=== PATIENT | female | born 1955 | race Two or more races ===

== ENCOUNTER 2019-09-14 18:53 | Emergency (ER) | payer OTHER, SELFPAY ==
[2019-09-14 19:16] VITALS: BP 137/80; PULSE 88; RESP 16; TEMP 36.9; O2SAT 100
--- NOTE | 2019-09-14 19:32 | ED.GENADULT ---
HPI - General Adult General Chief complaint: Extremity Injury, Upper Stated complaint: right hand pain Time Seen by Provider: 09/14/19 19:33 Source: patient Mode of arrival: ambulatory Limitations: no limitations History of Present Illness HPI narrative: 64-year-old female patient presents to the [facility] with complaints of right hand pain. 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 Patient states she started having right hand pain yesterday but denies any specific injury to the hand that she is aware of. Patient states that she did take ibuprofen 1 time yesterday denies taking anything today. Patient denies any numbness or tingling. 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 Related Data Home Medications Medication Instructions Recorded Confirmed No Home Medications 09/14/19 09/14/19 Allergies Allergy/AdvReac Type Severity Reaction Status Date / Time azithromycin Allergy Intermediate rash Verified 09/14/19 19:23 acetaminophen AdvReac Intermediate sick to Verified 09/14/19 19:23 stomach and hallucinate ibuprofen AdvReac Intermediate sick to Verified 09/14/19 19:23 stomach and hallucinate prednisone AdvReac Intermediate NAUSEA/VOMI Verified 09/14/19 19:23 TING Review of Systems Review of Systems: Narrative: CONSTITUTIONAL: Denies fever, chills, or sweats. EYES: Denies visual changes, redness, or discharge. ENT: Denies rhinorrhea, congestion, sore throat, or otalgia. CARDIOVASCULAR: Denies chest pain, palpitations, or edema. RESPIRATORY: Denies cough or dyspnea. GASTROINTESTINAL: Denies abdominal pain, nausea, vomiting, or diarrhea. GENITOURINARY: Denies dysuria or hematuria. SKIN: Denies rash or itching. MUSCULOSKELETAL: Denies back pain, joint pain, or myalgia. Positive right hand pain NEUROLOGIC: Denies headache, numbness, or weakness. PSYCHIATRIC: Denies anxiety or depression. PMFSH Comments At the time of my signature I agree with nursing past medical history, surgical, social, and family history. There is no relevant family history pertinent to the presenting complaint. Exam Narrative: Exam Narrative: GENERAL: Well-appearing, well-nourished, and in no acute distress. HEAD: Normocephalic, atraumatic. EYES: PERRLA and EOMI. ENT: Nares clear, no rhinorrhea or epistaxis. Mucous membranes moist. NECK: Supple. No lymphadenopathy CHEST: Clear to auscultation. No respiratory distress. HEART: Regular rate and rhythm. No murmur heard. Normal peripheral pulses. ABDOMEN: Soft, nontender, nondistended, normal active bowel sounds. EXTREMITIES: The R hand is without obvious asymmetry or deformity when compared to the L hand. No swelling, erythema, atrophy, or obvious deformity. No surface trauma, open wounds, nail avulsion, tissue avulsion, partial or complete amputation, subungual hematoma, bony deformity. Normal cascade of fingers. Normal flexion and extension of fingers. FDS and FDP intact aganist restistance. No focal fullness, thobbing pain, swelling of fingertip. tenderness to palpation to the palm side as well as tenderness to palpation on the dorsal side of the middle hand. Patient describes this as a pulling feeling. Pulses and cap refill. SKIN: Warm, dry, no rash. NEURO: No focal deficits. Alert and oriented x3. Course Vital Signs Vital signs: Vital Signs Temperature 36.9 C 09/14/19 19:16 Pulse Rate 88 09/14/19 19:16 Respiratory Rate 16 09/14/19 19:16 Blood Pressure 137/80 09/14/19 19:16 Pulse Oximetry 100 09/14/19 19:16 Temperature 36.9 C 09/14/19 19:16 Pulse Rate 88 09/14/19 19:16 Respiratory Rate 16 09/14/19 19:16 Blood Pressure 137/80 09/14/19 19:16 Pulse Oximetry 100 09/14/19 19:16 Vital signs reviewed. The patient has been informed that they may have pre-hypertension or Hypertension based on a BP reading in the department. I recommend that the patient call the primary care provider
== END 2019-09-14 19:47 | disposition home or self-care (01) ==
PROVIDERS: Emergency Provider Nurse Practitioner Family
DX: S63.91XA Sprain of unspecified part of right wrist and hand, initial encounter (principal); S66.911A Strain of unspecified muscle, fascia and tendon at wrist and hand level, right hand, initial encounter; X58.XXXA Exposure to other specified factors, initial encounter
CPT/HCPCS: 99212; G0463

== ENCOUNTER 2020-04-01 08:32 | Emergency (ER) | payer OTHER, SELFPAY ==
[2020-04-01 08:39] VITALS: BP 132/70; PULSE 113; RESP 16; TEMP 36.9; O2SAT 100
--- NOTE | 2020-04-01 08:43 | ED.URI ---
HPI - URI/Sore Throat General Chief Complaint: Upper Respiratory Infection Stated Complaint: sore throat Time Seen by Provider: 04/01/20 08:43 Source: patient Mode of arrival: ambulatory Limitations: no limitations History of Present Illness HPI Narrative: Patient presents with a sore throat. States she woke up this am with a sore throat. no trouble swallowing, no drooling. no cough no covid 19 symptoms no exposure to covid 19. Normally healthy individual MD elicited complaint: sore throat Relieving factors: NSAID Associated symptoms: denies other symptoms Related Data Allergies Allergy/AdvReac Type Severity Reaction Status Date / Time azithromycin Allergy Intermediate rash Verified 04/01/20 08:35 acetaminophen AdvReac Intermediate sick to Verified 04/01/20 08:35 stomach and hallucinate ibuprofen AdvReac Intermediate sick to Verified 04/01/20 08:35 stomach and hallucinate prednisone AdvReac Intermediate NAUSEA/VOMI Verified 04/01/20 08:35 TING Review of Systems Review of Systems: Narrative: CONSTITUTIONAL: Denies fever, chills, or sweats. EYES: Denies visual changes, redness, or discharge. ENT: Denies rhinorrhea, congestion, or otalgia. reports sore throat CARDIOVASCULAR: Denies chest pain, palpitations, or edema. RESPIRATORY: Denies cough or dyspnea. GASTROINTESTINAL: Denies abdominal pain, nausea, vomiting, or diarrhea. GENITOURINARY: Denies dysuria or hematuria. SKIN: Denies rash or itching. MUSCULOSKELETAL: Denies back pain, joint pain, or myalgia. NEUROLOGIC: Denies headache, numbness, or weakness. PSYCHIATRIC: Denies anxiety or depression. All systems reviewed & are unremarkable except as noted in HPI and below Constitutional: Constitutional: Reports as per HPI PMFSH Comments At time of signature, agree with nursing past medical, surgical, social and family history. There is no relevant family history pertinent to the presenting complaint Exam Narrative: Exam Narrative: GENERAL: Well-appearing, well-nourished, and in no acute distress. HEAD: Normocephalic, atraumatic. EYES: PERRLA and EOMI. ENT: Nares clear, no rhinorrhea or epistaxis. Mucous membranes moist.mild pharyngeal erythema, no trismus, no drooling, can open mouth fully, no exudate. NECK: Supple. CHEST: Clear to auscultation. No respiratory distress. HEART: Regular rate and rhythm. No murmur heard. Normal peripheral pulses. ABDOMEN: Soft, nontender, nondistended, normal active bowel sounds. EXTREMITIES: Normal range of motion. No edema. SKIN: Warm, dry, no rash. NEURO: No focal deficits. Alert and oriented x3. [place] Coma Scale Eye Opening: Spontaneous 4 [place] Coma Scale Motor: Obeys Commands 6 [place] Coma Scale Verbal: Oriented 5 [place] Coma Scale Total 15 Course Vital Signs Vital signs: Vital Signs Temperature 36.9 C 04/01/20 08:39 Pulse Rate 113 H 04/01/20 08:39 Respiratory Rate 16 04/01/20 08:39 Blood Pressure 132/70 04/01/20 08:39 Pulse Oximetry 100 04/01/20 08:39 Temperature 36.9 C 04/01/20 08:39 Pulse Rate 113 H 04/01/20 08:39 Respiratory Rate 16 04/01/20 08:39 Blood Pressure 132/70 04/01/20 08:39 Pulse Oximetry 100 04/01/20 08:39 Please MICHAELA schedule a followup visit with your personal physician for further evaluation and treatment. Including recheck and discussion of your blood pressure. If your symptoms persist, change or worsen significantly before you can contact your personal physician then please, without delay, go to the emergency department for further evaluation MDM - URI/Sore Throat MDM Narrative Medical decision making narrative: pharyngitis, strep pharyngitis post nasal drainage Critical Care Time Critical Care Time Critical Care Time: No Discharge Plan Discharge Clinical Impression: Pharyngitis Qualifiers: Pharyngitis/tonsillitis etiology: other specified organisms Qualified Code(s): J02.8 - Acute pharyngitis due to other specifie
== END 2020-04-01 09:05 | disposition home or self-care (01) ==
PROVIDERS: Emergency Provider Nurse Practitioner Family
DX: J02.8 Acute pharyngitis due to other specified organisms (principal)
CPT/HCPCS: 99213; G0463

== ENCOUNTER 2022-05-29 10:14 | Emergency (ER) | payer OTHER, SELFPAY ==
--- NOTE | 2022-05-29 10:21 | ED.URI ---
HPI - URI/Sore Throat General Chief Complaint: Upper Respiratory Infection Stated Complaint: cough runny nose fever Time Seen by Provider: 05/29/22 10:21 Source: patient Mode of arrival: ambulatory Limitations: no limitations History of Present Illness HPI Narrative: Ms. Kim is a 67-year-old female patient presenting to the clinic today with complaints of cough, sore throat, runny nose, vomiting, and low-grade fever since Thursday. 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 She states that she has had fever of 99 ?F and she normally runs 97 ?F MD elicited complaint: fever, cough, sore throat and nasal congestion Related Data Allergies Allergy/AdvReac Type Severity Reaction Status Date / Time azithromycin Allergy Intermediate rash Verified 05/29/22 10:23 acetaminophen AdvReac Intermediate sick to Verified 05/29/22 10:23 stomach and hallucinate ibuprofen AdvReac Intermediate sick to Verified 05/29/22 10:23 stomach and hallucinate prednisone AdvReac Intermediate NAUSEA/VOMI Verified 05/29/22 10:23 TING Review of Systems Review of Systems: Pertinent positives per HPI. Patient denies any fever, chills, rash, headache, visual changes, dizziness, cough, runny nose, sore throat, shortness of breath, chest pain, palpitations, nausea, vomiting, diarrhea, constipation, abdominal pain, or any urinary issues. PMFSH Comments At the time of my signature, I reviewed and agree with the nursing past medical, surgical, social, and family history. There is no relevant family history pertinent to the patient complaint. Exam Narrative: General: Well-developed, well nourished, in no apparent distress Head: Normocephalic, atraumatic Eyes: Pupils equally round and reactive to light bilaterally, EOM intact, sclera and conjunctive clear, no discharge, lids normal Ears: TMs intact and clear, ear canals clear, no drainage, grossly hearing normal. Nose: Nares patent, clear nasal discharge, mild inflammation, mild maxillary and frontal sinus tenderness. Mouth: Oropharynx without lesions or masses, good dentition, MMM. Postnasal drip Neck: Supple, trachea midline, no enlargement of anterior or posterior cervical nodes, no thyroid masses or goiter palpable. Cardio: Regular rate and rhythm, s1 and s2 normal, no murmur appreciated. Resp: Clear to auscultation bilaterally anteriorly and posteriorly, no rhonchi, rales, wheezing or rubs Course Course Emergency Course: Portions of this record may have been created with voice recognition software. Level of Care: Express Care Visit Vital Signs Vital signs: Vital Signs Temperature 36.7 C 05/29/22 10:30 Pulse Rate 98 05/29/22 10:30 Respiratory Rate 20 05/29/22 10:30 Blood Pressure 110/63 05/29/22 10:30 Pulse Oximetry 100 05/29/22 10:30 Oxygen Delivery Room Air 05/29/22 10:30 Temperature 36.7 C 05/29/22 10:30 Pulse Rate 98 05/29/22 10:30 Respiratory Rate 20 05/29/22 10:30 Blood Pressure 110/63 05/29/22 10:30 Pulse Oximetry 100 05/29/22 10:30 Oxygen Delivery Room Air 05/29/22 10:30 Vital signs reviewed MDM - URI/Sore Throat MDM Narrative Medical decision making narrative: At the time of visit patient is resting comfortably on the exam table. COVID, strep, and influenza testing was completed the clinic today was negative. I suspect the patient has sinusitis/upper respiratory infection. Supportive measures were discussed with the patient she voiced understanding of discharge instructions. Prescription for Tessalon Perles and prednisone was sent to the pharmacy. I also sent a prescription for some Zofran?she has nausea and vomiting with prednisone and the drainage has been making her nausea Differential Diagnosis Differential diagnosis: Likely upper respiratory infection, otitis media, sinusitis, viral infection, bronchitis, influenza, pharyngitis and other Lab Data Labs: Lab Results 05/29/22 Range/Uni
[2022-05-29 10:30] VITALS: BP 110/63; PULSE 98; RESP 20; TEMP 36.7; O2SAT 100
== END 2022-05-29 11:10 | disposition home or self-care (01) ==
PROVIDERS: Emergency Provider Nurse Practitioner Family; PCP Internal Medicine
DX: J06.9 Acute upper respiratory infection, unspecified (principal); Z20.822 Contact with and (suspected) exposure to COVID-19
CPT/HCPCS: 87081; 87426; 87804; 87880; 99213; C9803; G0463

== ENCOUNTER 2022-10-16 17:25 | Emergency (ER) | payer OTHER, SELFPAY ==
--- NOTE | 2022-10-16 17:30 | ED.GENADULT ---
HPI - General Adult General Chief complaint: Skin/Abscess/Foreign Body Stated complaint: Fever/Rash Source: patient and RN notes reviewed History of Present Illness HPI narrative: 67-year-old female presents to urgent care with complaints of an intermittent fever. Patient states this is the 3rd time she is having fevers of unknown origin in the last 2 months. Patient states this episode of fevers started 2 days ago and has gotten to 101.4 F. patient denies any ear pain, sore throat, cough, congestion, headache, chest pain, shortness of breath, vomiting, diarrhea, abdominal pain, or dysuria. Patient cannot get to her primary care physician until the end of October. Patient does report a chronic rash to her right lower back that she has seen her physician for. Patient reports associated pruritus with this rash. Some parts of this dictation were generated by voice recognition software and may contain typographical and/or grammatical inaccuracies. Related Data Allergies Allergy/AdvReac Type Severity Reaction Status Date / Time azithromycin Allergy Intermediate rash Verified 05/29/22 10:23 codeine Allergy Intermediate Hallucinati Verified 10/16/22 18:02 ng ibuprofen AdvReac Intermediate sick to Verified 05/29/22 10:23 stomach and hallucinate Review of Systems Review of Systems: CONSTITUTIONAL: Fevers EYES: Denies visual changes, redness, or discharge. ENT: Denies otalgia and sore throat CARDIOVASCULAR: Denies chest pain, palpitations, or edema. RESPIRATORY: Denies cough or dyspnea. GASTROINTESTINAL: Denies abdominal pain, nausea, vomiting, or diarrhea. GENITOURINARY: Denies dysuria or hematuria. SKIN: Chronic rash MUSCULOSKELETAL: Denies back pain, joint pain, or myalgia. NEUROLOGIC: Denies headache, numbness, or weakness. PMFSH Comments At the time of my signature, I reviewed and agree with the nursing past medical, surgical, social, and family history. There is no relevant family history pertinent to the patient complaint. Exam Narrative: GENERAL: This is a well-nourished, well-developed patient, in no apparent distress. HEAD: normocephalic, atraumatic. EYES: PERRL. Sclera clear/white. Vision is grossly intact. EARS: External ears normal, auditory canals clear and without drainage, TMs normal without perforation. Hearing grossly intact. NOSE: External nose normal with no obvious nasal discharge, nares without redness, no rhinorrhea. THROAT: Mucous membranes moist, posterior pharynx clear. NECK: Neck supple, non-tender without lymphadenopathy, masses or thyromegaly. CARDIOVASCULAR: Regular rate and rhythm without murmurs, gallops, or rubs. RESPIRATORY: Clear to auscultation. Breath sounds equal bilaterally. No wheezes, rales, or rhonchi. GASTROINTESTINAL: Abdomen soft, non-tender, nondistended. Bowel sounds are active. No hepato-splenomegaly, or palpable masses. No guarding. SKIN: atopi dermatitis-like rash to right lower back; dry, raised, silvery in color. NEURO: awake, alert, and oriented to person, place and time. There were no obvious focal neurologic abnormalities. EXTREMITIES: No clubbing, cyanosis, or edema. No joint tenderness, effusion, or edema noted. BACK: Nontender without deformity or crepitance. No flank tenderness. Course Course Level of Care: Express Care Visit Vital Signs Vital signs: Vital Signs Temperature 99.0 F 10/16/22 17:34 Pulse Rate 99 10/16/22 17:34 Respiratory Rate 16 10/16/22 17:34 Blood Pressure 143/80 H 10/16/22 17:34 Pulse Oximetry 100 10/16/22 17:34 Oxygen Delivery Room Air 10/16/22 17:34 Temperature 99.0 F 10/16/22 17:34 Pulse Rate 99 10/16/22 17:34 Respiratory Rate 16 10/16/22 17:34 Blood Pressure 143/80 H 10/16/22 17:34 Pulse Oximetry 100 10/16/22 17:34 Oxygen Delivery Room Air 10/16/22 17:34 Reviewed Medical Decision Making MDM Narrative Medical decision making narrative: Get plenty of fluids and electrolytes at home
[2022-10-16 17:34] VITALS: BP 143/80; PULSE 99; RESP 16; TEMP 37.2; O2SAT 100
== END 2022-10-16 19:09 | disposition home or self-care (01) ==
PROVIDERS: Emergency Provider Nurse Practitioner Family; PCP Internal Medicine
DX: R50.9 Fever, unspecified (principal); L20.9 Atopic dermatitis, unspecified; Z20.822 Contact with and (suspected) exposure to COVID-19
CPT/HCPCS: 81003; 87086; 87426; 87804; 99213; C9803; G0463

== ENCOUNTER 2022-11-16 11:10 | Emergency (ER) | payer OTHER, SELFPAY ==
[2022-11-16 11:20] VITALS: BP 125/79; PULSE 105; RESP 18; TEMP 36.6; O2SAT 98
--- NOTE | 2022-11-16 11:32 | ED.GENADULT ---
HPI - General Adult General Chief complaint: Skin/Abscess/Foreign Body Stated complaint: Fever Source: patient Mode of arrival: ambulatory Limitations: no limitations History of Present Illness HPI narrative: Patient presents for evaluation of elevated temperature. She indicates she received a tetanus shot at her primary care physician's office 2 days ago. Yesterday she noted a temperature of a 100.3? F and 99? today. She had some chills with those have resolved. She reports mild redness and pain in the site of the injection. She denies any infectious symptoms including but not limited to sore throat, otalgia, cough, shortness of breath, urinary symptoms. She states she came in today because her children encouraged her to do so. She is not using any therapies to assist with her symptoms. She is also concerned about some redness to her left forearm for the last few days. No new lotions, soaps, detergents, topical products. She states she has had similar symptoms during spring and fall in the past. They vary in site of presentation. Related Data Home Medications Medication Instructions Recorded Confirmed No Home Medications 11/16/22 11/16/22 Allergies Allergy/AdvReac Type Severity Reaction Status Date / Time azithromycin Allergy Intermediate rash Verified 11/16/22 11:29 codeine Allergy Intermediate Hallucinati Verified 11/16/22 11:29 ng ibuprofen AdvReac Intermediate sick to Verified 11/16/22 11:29 stomach and hallucinate Review of Systems Review of Systems: CONSTITUTIONAL: Reports fever and chills. Denies sweats. EYES: Denies visual changes, redness, or discharge. ENT: Denies rhinorrhea, congestion, sore throat, or otalgia. CARDIOVASCULAR: Denies chest pain, palpitations, or edema. RESPIRATORY: Denies cough or dyspnea. GASTROINTESTINAL: Denies abdominal pain, nausea, vomiting, or diarrhea. GENITOURINARY: Denies dysuria or hematuria. SKIN: Reports redness at the site of tetanus shot in right upper extremity. Reports an area of redness to the left form. MUSCULOSKELETAL: Denies back pain, joint pain, or myalgia. NEUROLOGIC: Denies headache, numbness, dizziness, or weakness. PSYCHIATRIC: Denies anxiety or depression. [facility] Past Medical History Medical History No pertinent past medical history Surgical History Surgical History Past surgical history of mastectomy Family History Family History (Updated 11/16/22 @ 11:39 by Carlos Camarena, [employer]CH[employer], ) Mother Family history non-contributory Social History Social History (Updated 11/16/22 @ 11:39 by JAREK Perez, ) Smoking status: Never smoker Substance use: never Living arrangements: with family Additional occupation/education comments: Runs daycare Gender identity (if verbalized by the patient): Female Spiritual care concerns: No Exam Narrative: GENERAL: Well-appearing, well-nourished, and in no acute distress. HEAD: Normocephalic, atraumatic. EYES: PERRLA and EOMI. ENT: Nares clear, no rhinorrhea or epistaxis. Mucous membranes moist. Oropharynx without tonsillar hypertrophy exudate or other lesions. Bilateral TMs pearly borjas nonbulging NECK: Supple. No adenopathy or masses. No carotid bruits or JVD CHEST: Clear to auscultation. No respiratory distress. No wheezes rales or rhonchi HEART: Regular rate and rhythm. No murmur heard. Normal peripheral pulses. ABDOMEN: Soft, nontender, nondistended, normal active bowel sounds. EXTREMITIES: Normal range of motion. No edema. SKIN: I do not appreciate any erythema at this site of her tetanus shot in the right upper arm. There is an approximately 1.5 cm area of erythema to the left forearm with a 1 cm linear abrasion present within that area NEURO: No focal deficits. Alert and oriented x3. PSYCH: Normal mood and affect. Course Course Aracely
== END 2022-11-16 11:35 | disposition home or self-care (01) ==
PROVIDERS: Emergency Provider Nurse Practitioner; PCP Internal Medicine
DX: T88.1XXA Other complications following immunization, not elsewhere classified, initial encounter (principal); T50.A95A Adverse effect of other bacterial vaccines, initial encounter; L53.9 Erythematous condition, unspecified; Z90.10 Acquired absence of unspecified breast and nipple
CPT/HCPCS: 99211; G0463

== ENCOUNTER 2022-12-29 18:15 | Emergency (ER) | payer OTHER, SELFPAY ==
--- NOTE | ~2022-12-29 | XR_ITS ---
EXAMINATION:[id number] DATE: 12/29/2022 19:37 INDICATION: Neck pain post fall TECHNIQUE: AP, lateral, lateral swimmers and odontoid views of the cervical spine are provided. COMPARISON: None FINDINGS: Alignment is normal. Odontoid is intact. Normal atlantoaxial interval. Vertebral body heights are no rmal. Moderate disc height loss with anterior and posterior degenerative endplate osteophytes at C5-C 6. Moderate right-sided and mild left-sided uncovertebral osteoarthritis at this level. The posterior endplate osteophytes resulting in mild central canal stenosis at this level. Prevertebral soft tissu es are normal. Small metallic fragments/shrapnel the soft tissues along the mandible. Visualized apic es of lungs are clear. IMPRESSION: 1. Moderate lower cervical spondylosis. No evident acute osseous abnormality. Reviewed, dictated and finalized at location A.
--- NOTE | ~2022-12-29 | XR_ITS ---
EXAMINATION: XR knee LT min 4V DATE: 12/29/2022 19:38 INDICATION: Left knee pain post fall TECHNIQUE: Anteroposterior, 2 oblique and crosstable lateral views of the left knee were obtained COMPARISON: None. FINDINGS: Alignment is normal. No fracture. Mild osteoarthritis at the patellofemoral compartment with cortical irregularity along the apical ridge suggesting overlying high-grade chondromalacia. There are small marginal osteophytes in the medial compartment. Several loose osteochondral bodies in the recess post erior to the left knee. No joint effusion/layering lipohemarthrosis. Soft tissues are unremarkable. IMPRESSION: 1. At least mild medial and patellofemoral osteoarthritis of the left knee. No joint effusion or acut e osseous abnormality. Reviewed, dictated and finalized at location A. IMPRESSION: 1. At least mild medial and patellofemoral osteoarthritis of the left knee. No joint effusion or acute osseous abnormality.
--- NOTE | ~2022-12-29 | XR_ITS ---
EXAMINATION: XR shoulder LT min 2V DATE: 12/29/2022 19:38 INDICATION: Shoulder pain post fall TECHNIQUE: AP internally and externally rotated, AP oblique externally rotated and transscapular Y vi ews of the left shoulder were obtained. COMPARISON: None FINDINGS: Normal alignment. No fracture. Glenohumeral joint is normal. Mild acromioclavicular osteoarthritis. Mild cystic change along the greater tuberosity which can be seen in the setting of rotator cuff dise ase. Soft tissues are unremarkable. Visualized portion of the lungs are clear. IMPRESSION: Mild degenerative skeletal changes at the left shoulder. No acute osseous abnormality. Reviewed, dictated and finalized at location A. IMPRESSION: Mild degenerative skeletal changes at the left shoulder. No acute osseous abnor mality.
[2022-12-29 18:30] VITALS: BP 145/72; PULSE 84; RESP 16; TEMP 36.7; O2SAT 100
--- NOTE | 2022-12-29 18:48 | ED.FALL ---
HPI - Fall General Chief Complaint: Fall Stated Complaint: Fell on left side Source: patient Mode of arrival: ambulatory History of Present Illness HPI Narrative: 67-year-old female presents to the [facility] today complaining of a fall from yesterday. Patient states she was at a restaurant when there was a slick spot and she ended up slipping and falling to the ground landing on her left side. Patient denies any loss of consciousness. Patient is complaining of left shoulder pain, neck pain, upper back pain, and left knee pain. Patient denies hitting her head. Patient denies taking any blood thinners. Patient states she is able to bear weight on her left knee, but states having pain with ambulation. Patient denies any numbness, tingling, weakness, blurry visions, or any other injuries. Related Data Allergies Allergy/AdvReac Type Severity Reaction Status Date / Time azithromycin Allergy Intermediate rash Verified 11/16/22 11:29 codeine Allergy Intermediate Hallucinati Verified 11/16/22 11:29 ng ibuprofen AdvReac Intermediate sick to Verified 11/16/22 11:29 stomach and hallucinate Review of Systems Review of Systems: CONSTITUTIONAL: Denies fever, chills, or sweats. EYES: Denies visual changes, redness, or discharge. ENT: Denies otalgia and sore throat CARDIOVASCULAR: Denies chest pain, palpitations, or edema. RESPIRATORY: Persistent cough x2 weeks GASTROINTESTINAL: Denies abdominal pain, nausea, vomiting, or diarrhea. GENITOURINARY: Denies dysuria or hematuria. SKIN: Denies rash or itching. MUSCULOSKELETAL: Positive for neck pain, upper back pain, left shoulder pain, left knee pain. NEUROLOGIC: Denies headache, numbness, or weakness. Pertinent positives per HPI. [facility] Past Medical History Medical History No pertinent past medical history Surgical History Surgical History Past surgical history of mastectomy Family History Family History (Updated 11/16/22 @ 11:39 by JAREK Perez, LAVELLE) Mother Family history non-contributory Social History Social History (Updated 11/16/22 @ 11:39 by Carlos Camarena, JAREK, BC) Smoking status: Never smoker Substance use: never Living arrangements: with family Additional occupation/education comments: Runs daycare Gender identity (if verbalized by the patient): Female Spiritual care concerns: No Comments At the time of my signature, I reviewed and agree with the nursing past medical, surgical, social, and family history. There is no relevant family history pertinent to the patient complaint. Exam Narrative: GENERAL: This is a well-nourished, well-developed patient, in no apparent distress. HEAD: normocephalic, atraumatic. EYES: PERRL. Sclera clear/white. Vision is grossly intact. EARS: External ears normal, auditory canals clear and without drainage, TMs normal without perforation. Hearing grossly intact. NOSE: External nose normal with no obvious nasal discharge, nares without redness, no rhinorrhea. THROAT: Mucous membranes moist, posterior pharynx clear. NECK: Neck supple, non-tender without lymphadenopathy, masses or thyromegaly. Lower posterior cervical tenderness. CARDIOVASCULAR: Regular rate and rhythm without murmurs, gallops, or rubs. RESPIRATORY: Clear to auscultation. Breath sounds equal bilaterally. No wheezes, rales, or rhonchi. Persistent cough x2 weeks GASTROINTESTINAL: Abdomen soft, non-tender, nondistended. Bowel sounds are active. No hepato-splenomegaly, or palpable masses. No guarding. SKIN: warm, intact with no suspicious lesions or rash, good texture and turgor. NEURO: awake, alert, and oriented to person, place and time. There were no obvious focal neurologic abnormalities. EXTREMITIES: No clubbing, cyanosis, or edema. There is swelling to the left inferior patella. Left shoulder tenderness p
== END 2022-12-29 20:01 | disposition home or self-care (01) ==
PROVIDERS: Emergency Provider Nurse Practitioner Family; PCP Internal Medicine
DX: S83.92XA Sprain of unspecified site of left knee, initial encounter (principal); J40 Bronchitis, not specified as acute or chronic; W01.0XXA Fall on same level from slipping, tripping and stumbling without subsequent striking against object, initial encounter; M25.512 Pain in left shoulder; M54.2 Cervicalgia
CPT/HCPCS: 72040; 73030; 73564; 99214; G0463

== ENCOUNTER 2023-01-16 17:35 | Emergency (ER) | payer OTHER, SELFPAY ==
--- NOTE | ~2023-01-16 | XR_ITS ---
EXAMINATION: XR knee LT min 4V DATE: 01/16/2023 18:04 INDICATION: Proximal fibular pain post fall 3 weeks prior TECHNIQUE: Anteroposterior, 2 oblique, sunrise and crosstable lateral views of the left knee were obt ained COMPARISON: None. FINDINGS: Alignment is normal. No fracture. Tricompartmental osteoarthritis with small marginal osteophytes in all 3 compartments and with at least mild joint space narrowing at the patellofemoral articulation. Cluster of 5 loose osteochondral bodies may recess posterior to the intercondylar notch. No joint eff usion/layering lipohemarthrosis. Soft tissues are unremarkable. IMPRESSION: 1. At least mild tricompartmental osteoarthritis at the left knee with no knee joint effusion or acut e osseous abnormality. Reviewed, dictated and finalized at location A. IMPRESSION: 1. At least mild tricompartmental osteoarthritis at the left knee with no knee joint effusion or acute osseous abnormality.
[2023-01-16 17:40] VITALS: BP 135/73; PULSE 81; RESP 14; TEMP 37.1; O2SAT 100
--- NOTE | 2023-01-16 17:43 | ED.LOWEXIN ---
HPI - Extremity Injury (Lower) General Chief Complaint: Extremity Injury, Lower Stated Complaint: Left Knee Pain Source: patient and RN notes reviewed Limitations: no limitations History of Present Illness HPI Narrative: patient is a 67-year-old female who presents to the [facility] with complaints left lower knee pain. Patient states that she was seen here 3 weeks ago after a fall where she fell on her left side. Patient states that at that time she had an x-ray performed of her left knee. However, she continues to experience left knee pain with severe tenderness upon palpation. She has full range of motion of the left knee. Sensation is intact. Pulses present. There is no multiple signs injury or swelling. Related Data Allergies Allergy/AdvReac Type Severity Reaction Status Date / Time azithromycin Allergy Intermediate rash Verified 11/16/22 11:29 codeine Allergy Intermediate Hallucinati Verified 11/16/22 11:29 ng ibuprofen AdvReac Intermediate sick to Verified 11/16/22 11:29 stomach and hallucinate Review of Systems Review of Systems: CONSTITUTIONAL: Denies fever, chills, or sweats. EYES: Denies visual changes, redness, or discharge. ENT: Denies otalgia and sore throat CARDIOVASCULAR: Denies chest pain, palpitations, or edema. RESPIRATORY: Denies cough or dyspnea. GASTROINTESTINAL: Denies abdominal pain, nausea, vomiting, or diarrhea. GENITOURINARY: Denies dysuria or hematuria. SKIN: Denies rash or itching. MUSCULOSKELETAL: Denies back pain. Reports left knee pain and tenderness. NEUROLOGIC: Denies headache, numbness, or weakness. Pertinent positives per HPI. [facility] Past Medical History Medical History No pertinent past medical history Surgical History Surgical History Past surgical history of mastectomy Family History Family History Mother Family history non-contributory Social History Social History Smoking status: Never smoker Substance use: never Living arrangements: with family Additional occupation/education comments: Runs daycare Gender identity (if verbalized by the patient): Female Spiritual care concerns: No Comments At the time of my signature, I reviewed and agree with the nursing past medical, surgical, social, and family history. There is no relevant family history pertinent to the patient complaint. Exam Narrative: GENERAL: This is a well-nourished, well-developed patient, in no apparent distress. HEAD: normocephalic, atraumatic. EYES: Sclera clear/white. Vision is grossly intact. EARS: External ears normal, auditory canals clear and without drainage. Hearing grossly intact. NOSE: External nose normal with no obvious nasal discharge, nares without redness, no rhinorrhea. THROAT: Mucous membranes moist, posterior pharynx clear. NECK: Neck supple, non-tender without lymphadenopathy, masses or thyromegaly. CARDIOVASCULAR: Regular rate and rhythm without murmurs, gallops, or rubs. RESPIRATORY: Clear to auscultation. Breath sounds equal bilaterally. No wheezes, rales, or rhonchi. GASTROINTESTINAL: Abdomen soft, non-tender, nondistended. Bowel sounds are active. No hepato-splenomegaly, or palpable masses. No guarding. SKIN: warm, intact with no suspicious lesions or rash, good texture and turgor. NEURO: awake, alert, and oriented to person, place and time. There were no obvious focal neurologic abnormalities. EXTREMITIES: Left lower knee pain and tenderness upon palpation. Full ROM of the left knee. Sensation intact. Pulses present. Cap refill normal. Course Course Level of Care: Express Care Visit Vital Signs Vital signs: Vital Signs Temperature 98.8 F 01/16/23 17:40 Pulse Rate 81 01/16/23 17:40 Respiratory Rate
--- NOTE | 2023-01-16 18:06 | PC.NURSE ---
PT DECLINED ICE FOR COMFORT
== END 2023-01-16 18:32 | disposition home or self-care (01) ==
PROVIDERS: Emergency Provider Nurse Practitioner; PCP Internal Medicine
DX: M17.12 Unilateral primary osteoarthritis, left knee (principal)
CPT/HCPCS: 73564; 99213; G0463

== ENCOUNTER 2023-10-03 12:32 | Emergency (ER) | payer OTHER, SELFPAY ==
[2023-10-03 12:41] VITALS: BP 143/78; PULSE 92; RESP 16; TEMP 36.6; O2SAT 100
--- NOTE | 2023-10-03 12:45 | ED.GENADULT ---
HPI - General Adult General Chief complaint: Skin/Abscess/Foreign Body Stated complaint: Skin Problem Source: patient, RN notes reviewed and old records reviewed Mode of arrival: ambulatory Limitations: no limitations History of Present Illness HPI narrative: 5-year-old female presents to [facility] with complaints redness, swelling, pain, itching to right hand and arm. Patient states had been worsening over last few days. Patient has not taken anything for symptoms. Related Data Allergies Allergy/AdvReac Type Severity Reaction Status Date / Time azithromycin Allergy Intermediate rash Verified 10/03/23 12:34 codeine Allergy Intermediate Hallucinati Verified 10/03/23 12:34 ng ibuprofen AdvReac Intermediate sick to Verified 10/03/23 12:34 stomach and hallucinate Review of Systems Constitutional: Constitutional: Reports no additional constitutional complaints, Denies body ache(s), Denies chills, Denies fatigue, Denies fever(s) and Denies headache(s) Eyes: Eyes: Reports no additional eye complaints and Denies blurry vision ENT: Reports system reviewed and no additional complaints, except as documented, Denies vertigo, Denies dizziness, Denies ear discharge, Denies otalgia, Denies facial pain, Denies headache(s), Denies nasal congestion, Denies nasal discharge, Denies sinus pain, Denies sinus pressure and Denies sore throat Cardiovascular: Cardiovascular: Reports no additional cardiovascular complaints, Denies chest pain, Denies chest pain at rest, Denies rapid heart rate and Denies dyspnea Respiratory: Respiratory: Reports no additional respiratory complaints, Denies chest congestion, Denies cough, Denies pain on inspiration, Denies pain with cough and Denies dyspnea Gastrointestinal: Gastrointestinal: Denies abdominal pain, Denies diarrhea, Denies nausea and Denies vomiting Integumentary/Breasts: Skin/Breast: Reports pruritus, Reports erythema, Denies rash and Reports skin swelling Neurologic: Reports system reviewed and no additional complaints, except as documented, Denies vertigo, Denies dizziness and Denies headache(s) Endocrine: Endocrine: Denies fatigue PMFSH Past Medical History Medical History No pertinent past medical history Surgical History Surgical History Past surgical history of mastectomy Family History Family History Mother Family history non-contributory Social History Social History Smoking status: Never smoker Substance use: never Living arrangements: with family Additional occupation/education comments: Runs daycare Gender identity (if verbalized by the patient): Female Spiritual care concerns: No Comments At the time of my signature, I reviewed and agree with the nursing past medical, surgical, social, and family history. There is no relevant family history pertinent to the patient complaint. Exam Const: General: cooperative, healthy appearing, no acute distress and well nourished Nutritional Appearance: well nourished Orientation/consciousness: patient oriented x3 Limitations: no limitations HENMT: Head: normal to inspection and normocephalic Ears: external ears normal, TM's normal bilaterally, mastoids normal and Abnormal EAC present Face/Nose/Sinus: normal facial exam Face and sinus: normal facial exam Mouth: Yes Normal oral and palatal mucosa present, Yes oropharynx normal and Yes moist mucous membranes Throat: tonsils normal, uvula midline and no uvular edema Eyes: General: appearance normal, both eyes and all related structures Sclera: sclerae normal Pupils: Equal, round and reactive pupils present Resp: Effort & Inspection: normal respiratory effort, able to speak in complete sentences, no audible wheezes, no cough, no respir
== END 2023-10-03 13:04 | disposition home or self-care (01) ==
PROVIDERS: Emergency Provider Registered Nurse; PCP Internal Medicine
DX: L03.113 Cellulitis of right upper limb (principal)
CPT/HCPCS: 99213; G0463

== ENCOUNTER 2024-03-19 13:14 | Emergency (ER) | payer OTHER, SELFPAY ==
[2024-03-19 13:21] VITALS: BP 126/64; PULSE 85; RESP 18; TEMP 36.9; O2SAT 100
[2024-03-19 13:25] VITALS: BP 126/64; PULSE 85; RESP 18; TEMP 36.9; O2SAT 100
--- NOTE | 2024-03-19 13:59 | ED.GENADULT ---
HPI - General Adult General Chief complaint: Urogenital-Female Stated complaint: Urinary Problem Source: patient Mode of arrival: ambulatory Limitations: no limitations History of Present Illness HPI narrative: Patient presents for evaluation of urinary symptoms since 0130 this morning. Symptoms include urinary frequency, urgency, dysuria and suprapubic pressure. No fever, chills, nausea, vomiting or back pain. She has had urinary tract infections in the past and this feels similar. Related Data Allergies Allergy/AdvReac Type Severity Reaction Status Date / Time azithromycin Allergy Intermediate rash Verified 03/19/24 13:25 codeine Allergy Intermediate Hallucinati Verified 03/19/24 13:25 ng ibuprofen AdvReac Intermediate sick to Verified 03/19/24 13:25 stomach and hallucinate Review of Systems Review of Systems: CONSTITUTIONAL: Denies fever, chills, or sweats. EYES: Denies visual changes, redness, or discharge. ENT: Denies rhinorrhea, congestion, sore throat, or otalgia. CARDIOVASCULAR: Denies chest pain, palpitations, or edema. RESPIRATORY: Denies cough or dyspnea. GASTROINTESTINAL: Denies abdominal pain, nausea, vomiting, or diarrhea. GENITOURINARY: Reports urinary frequency, dysuria, urgency and suprapubic pressure SKIN: Denies rash or itching. MUSCULOSKELETAL: Denies back pain, joint pain, or myalgia. NEUROLOGIC: Denies headache, numbness, dizziness, or weakness. PSYCHIATRIC: Denies anxiety or depression. PMFSH Past Medical History Medical History No pertinent past medical history Surgical History Surgical History Past surgical history of mastectomy Family History Family History Mother Family history non-contributory Social History Social History Smoking status: Never smoker Substance use: never Living arrangements: with family Additional occupation/education comments: Runs daycare Gender identity (if verbalized by the patient): Female Spiritual care concerns: No Exam Narrative: GENERAL: Well-appearing, well-nourished, and in no acute distress. HEAD: Normocephalic, atraumatic. EYES: PERRLA and EOMI. ENT: Nares clear, no rhinorrhea or epistaxis. Mucous membranes moist. Oropharynx without tonsillar hypertrophy exudate or other lesions. Bilateral TMs pearly borjas nonbulging NECK: Supple. No adenopathy or masses. No carotid bruits or JVD CHEST: Clear to auscultation. No respiratory distress. No wheezes rales or rhonchi HEART: Regular rate and rhythm. No murmur heard. Normal peripheral pulses. ABDOMEN: Soft, nondistended, normal active bowel sounds Mild tenderness in suprapubic region without rebound or guarding. EXTREMITIES: Normal range of motion. No edema. SKIN: Warm, dry, no rash. NEURO: No focal deficits. Alert and oriented x3. PSYCH: Normal mood and affect. Course Course Emergency Course: This is a 68-year-old female who presented for evaluation of urinary symptoms. She has trace leukocytes on urine today. Will treat with Bactrim. Pyridium for burning. Increase hydration. Follow up with primary provider. Go to the ER for worsening symptoms. Pt in agreement with plan of care. Level of Care: Express Care Visit Vital Signs Vital signs: Vital Signs Temperature 36.9 C 03/19/24 13:21 Pulse Rate 85 03/19/24 13:21 Respiratory Rate 18 03/19/24 13:21 Blood Pressure 126/64 03/19/24 13:21 Pulse Oximetry 100 03/19/24 13:21 Oxygen Delivery Room Air 03/19/24 13:21 Temperature 36.9 C 03/19/24 13:25 Pulse Rate 85 03/19/24 13:25 Respiratory Rate 18 03/19/24 13:25 Blood Pressure 126/64 03/19/24 13:25 Pulse Oximetry 100 03/19/24 13:25 Oxygen Delivery Room Air 03/19/24 13:25
[2024-03-19 15:44] LABS: EDUAAPPEAR Clear; EDUABILI Negative; EDUABLOOD Negative; EDUACOLOR1 Yellow; EDUAGLUCOSE Negative; EDUAKETONE Negative; EDUALEUKO Trace; EDUANITRATE Negative; EDUAPROTEIN Negative; EDUASPGRAVITY 1.025; EDUAUROBILI 0.2
== END 2024-03-19 13:55 | disposition home or self-care (01) ==
PROVIDERS: Emergency Provider Nurse Practitioner; PCP Internal Medicine
DX: N39.0 Urinary tract infection, site not specified (principal)
CPT/HCPCS: 81003; 87086; 99213; G0463

== ENCOUNTER 2025-01-15 09:51 | Emergency (ER) | payer OTHER, SELFPAY ==
--- OUTSIDE RECORDS SUMMARY | 2025-01-15 09:54 | XMS_ITS | Clinical Summary ---
Author Organization [facility] Address [address] [address] Phone Care Team Providers Care Auto Detailer Name Role Phone Bri Cornelius MD Primary Care Provider [phone] Allergies Active Allergy Reactions Criticality Noted Date Comments Acetaminophen-Codeine Hallucinations Medium 06/25/2022 Medications No known medications Family History Medical History Relation Name Comments No Known Problems Father No Known Problems Mother Relation Name Status Comments Father Mother Social History Tobacco Use Types Packs/Day Years Used Date Smoking Tobacco: Never Smokeless Tobacco: Never Alcohol Use Standard Drinks/Week Comments Never 0 (1 standard drink = 0.6 oz pur e alcohol) Comments Unknown Sex and Gender Information Value Date Recorded Sex Assigned at Not on file Legal Sex Female 11:21 PM CDT Gender Identity Not on file Sexual Orientation Not on file Last Filed Vital Signs Vital Sign Reading Time Taken Comments Blood Pressure - - Pulse - - Temperature - - Respiratory Rate - - Oxygen Saturation - - Inhaled Oxygen Concentration - - Weight 55.3 kg (122 lb) 06/25/2022 9:00 AM 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 Height 158.8 cm (5' 2.5) 06/25/2022 9:00 AM 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 Body Mass Index 21.96 06/25/2022 9:00 AM [employer]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 Plan of Treatment Health Maintenance Due Date Last Done Comments DEXA Bone Density 1955 Hepatitis C Virus (HCV) Screening 1955 TdaP Immunization 1955 Colonoscopy 1998 Colorectal Cancer Screening 1998 Cologuard 2003 Immunochemical Fecal Occult Blood 2003 Mammogram 2003 Pneumococcal Immunization (5 0+ years) (1 of 1 - PCV) 2003 Zoster Immunization (1 of 2) 2003 Influenza Immunization (#1) 2024 SARS-COV-2 Immunization (1 - 2023-25 season) 2024 Respiratory Syncytial Virus (RSV) Immunization (Adult) (1 - 1-dose 75+ series) 2028 Hepatitis B Immunization Aged Out No longer eligible based on patient's age to complete this topic Meningococcal Immunization (ACWY) Aged Out No longer eligible based on patient's age to complete this topic Rotavirus Immunization Aged Out No lo nger eligible based on patient's age to complete this topic Insurance [employer] Care Teams Auto Detailer Relationship Specialty Start Date End Date Bri Cornelius MD [address] [place] [address] PCP - General Internal Medicine 03/07/22
--- OUTSIDE RECORDS SUMMARY | 2025-01-15 09:54 | XMS_ITS | Clinical Summary ---
Author Organization [facility] Address [address] [place] [address] Care Team Providers Care Dyer And Washer Name Role Phone Stephen Christy MD Primary Care Provider [phone] Allergies Active Allergy Reactions Criticality Noted Date Comments Acetaminophen-Codeine Hallucinations Medium 06/25/2022 Penicillins Hallucinations,Vomiting Medium 10/11/2023 Medications diphenhydrAMINE 25 mg capsule Take 1 tablet/capsule (25 mg total) by mouth every 6 (six) hours as needed for itching 20 capsule 10/09/19 24 Active Additional Information Patient not taking.Reported on 10/26/2023 LORazepam (Ativan) 1 mg tablet Take 1 tablet (1 mg total) by mouth 3 (three) times a day as needed for anxiety 15 tablet 10/11/19 24 Active omeprazole (PriLOSEC) 20 mg capsule 07/10/20 23 Active traMADoL (ULTRAM) 50 mg tabletIndications: Status post tooth extraction,Dental infection,Dentalgi a Take 0.5-1 tablets (25-50 mg total) by mouth every 8 (eight) hours as needed for pain P.r.n. pain not relieved by ibuprofen alone. Take 500 mg to 650 mg of acetaminophen with each dose. Take with food. Collaborating physician Ilia Duarte MD 15 tablet 08/16/20 24 Active ondansetron ODT (ZOFRAN-ODT) 4 mg disintegrating tablet Take 1 tablet (4 mg total) by mouth every 8 (eight) hours as needed for nausea Take as directed to help alleviate nausea. Collaborating physician Ilia Duarte MD 20 tablet 08/16/20 24 Active DILT-XR 240 mg 24 hr capsule TAKE 1 CAPSULE(240 MG) BY MOUTH DAILY 30 capsule 11 10/13/19 25 Active Active Problems Problem Noted Date Diagnosed Date Status post tooth extraction 08/16/2024 Dental caries 08/16/2024 Dentalgia 08/16/2024 Left ventricular hypertrophy 10/01/2023 Essential hypertension 10/01/2023 Palpitations 09/30/2023 Encounter for screening colonoscopy 05/31/2021 Overview (05/31/2021): Added automatically from request for surgery [id number] Surgical History Surgery Date Site/Laterality Comments HYSTERECTOMY 08/17/1990 - 08/16/1991 OOPHORECTOMY 08/17/1990 - 08/16/1991 Social History Tobacco Use Types Packs/Day Years Used Date Smoking Tobacco: Never Smokeless Tobacco: Never Tobacco Cessation:Counseling Given: Not Answered Personal Safety Answer Date Recorded Have you ever been in or are you currently in a harmful physical or emotional relationship or is someone making you feel afraid or unsafe? Denies 08/16/2024 Comments No Sex and Gender Information Value Date Recorded Sex Assigned at Not on file Legal Sex Female 3:56 PM FURNACE KEEPER Gender Identity Not on file Sexual Orientation Not on file Obstetrics History Para Term AB IAB SAB Ectopic Multiple Livin g Live Births 4 4 4 Date Outcome GA Total Labor Labor/2nd/3rd Weight Sex Type Anes PTL Maya A1 A5 Name Clin Term Term Term Term Last Filed Vital Signs Vital Sign Reading Time Taken Comments Blood Pressure 129/68 08/16/2024 12:15 PM FURNACE KEEPER Pulse 66 08/16/2024 12:15 PM FURNACE KEEPER Temperature 36.8 C (98.2 F) 08/16/2024 12:15 PM FURNACE KEEPER Respiratory Rate 14 08/16/2024 12:15 PM FURNACE KEEPER Oxygen Saturation 100% 08/16/2024 12:15 PM FURNACE KEEPER Inhaled Oxygen Concentration - - Weight 56.7 kg (125 lb) 08/16/2024 11:16 AM FURNACE KEEPER Height 157.5 cm (5' 2) 08/16/2024 11:16 AM FURNACE KEEPER Body Mass Index 22.86 08/16/2024 11:16 AM FURNACE KEEPER Plan of Treatment Health Maintenance Due Date Last Done Comments Colon Cancer Screening-Colonoscopy 1955 Depression Screening 1953 Fall Risk Assessment 1955 Hepatitis C Screening 1955 DTaP/Tdap/Td Vaccine (1 - Tdap) 1964 Hepatitis B Screening 1971 Pneumococcal vaccine 65+ (1 of 1 - PCV) 2003 Zoster Vaccine (1 of 2) 2003 Well Visit 65+ 2018 Breast Cancer Screening-Mammogram 06/04/2022 021 Osteoporosis Screening-Bone Density Scan 06/27/2023 06/27/2021 Covid-19 Vaccine ( season) 2024 06/04/2021, 11/25/2020, 10/14/2020 Influenza Vaccine (Season Ended) 2025 Procedures Procedure Name Priority Date/Time Associated Diagnosis Comments DEXA AXIAL SKELETON BONE DENSITY 1 OR MORE SITES Schedule Routine, Read Routine (OP Routine) 06/27/2021 7:59 AM FURNACE KEEPER Asymptomatic menopausal state SCREENING MAMMOGRAM BILATERAL W JADIEL Schedule Routine, Read Routine (OP Routine) 06/04/2021 12:44 PM CDT Encounter for screening mammogram for malignant neoplasm of breast from Last 3 Months or Most Recently Relevant to Health Maintenance Results * Dexa Axial Skeleton Bone Density 1 or 2 Site (06/27/2021 7:59 AM FURNACE KEEPER) Anatomical Region Laterality Modality Body N/A Other 06/27/2021 8:22 AM FURNACE KEEPER Narrative 06/27/2021 8:23 AM FURNACE KEEPER EXAM DESCRIPTION: DEXA AXIAL SKELETON BONE DENSITY 1 OR MORE SITES REASON FOR STUDY: Post-menopausal female, screening for osteoporosis. Field Worker/Model: [employer] (S/N [id number]) CLINICAL INFORMATION: Current height: 63 inches Maximum height: 63 inches Weight: 115 pounds Risk factors: None COMPARISON: None available. FINDINGS: AP LUMBAR SPINE L1-L4: Total BMD is 0.913 g/cm2 T-score is -1.2 LEFT HIP: Total BMD is 0.830 g/cm2 T-score is -0.9 Femoral neck BMD is 0.613 g/cm2 T-score is -2.1 IMPRESSION: 1. Low bone mass by WHO criteria. 2. The WHO fracture risk assessment tool (FRAX) indicates that the 10 year risk for a major osteoporotic fracture is 10% and the 10 year risk for a hip fracture is 1.9%. The FRAX tool has not been validated in patients currently or previously treated with pharmacotherapy for osteoporosis. In such patients, clinical judgement must be exercised in interpreting FRAX scores as the fracture risk may be overestimated. REFERENCE: Bone mineral density: Normal (T-score above or = -1.0) Low bone mass (T-score between -1.0 and -2.5) replaces the previously used term osteopenia Osteoporosis (T-score = or below -2.5) Medical evaluation for secondary causes of low bone mineral density may be appropriate. FRAX is a World Health Organization validated fracture risk assessment tool that calculates a person's 10 year probability of a major osteoporosis related fracture and hip fracture. According to the National Osteoporosis Foundation guidelines, postmenopausal women and men age 50 or older with low bone mass and a 10 year probability of a major osteoporosis related fracture = or greater than 20% or a 10 year probability of a hip fracture = or greater than 3% should be considered for treatment. For further information, including treatment recommendations, please refer to the 2013 ISCD Official Positions (http://www.iscd.org) and the NOF's Clinician's Guide to Prevention and Treatment of Osteoporosis (http://www.nof.org/professionals/clinical-guidelines) THIS IS AN ELECTRONICALLY VERIFIED FINAL REPORT 06/27/2021 8:23 AM - Electronically signed by oJrge Chakraborty M.D. AB: Report ID: [id number] Reading Location: [id number] Procedure Note Jorge Chakraborty MD - 06/27/2021 EXAM DESCRIPTION: DEXA AXIAL SKELETON BONE DENSITY 1 OR MORE SITES REASON FOR STUDY: Post-menopausal female, screening for osteoporosis. Field Worker/Model: [employer] (S/N [id number]) CLINICAL INFORMATION: Current height: 63 inches Maximum height: 63 inches Weight: 115 pounds Risk factors: None COMPARISON: None available. FINDINGS: AP LUMBAR SPINE L1-L4: Total BMD is 0.913 g/cm2 T-score is -1.2 LEFT HIP: Total BMD is 0.830 g/cm2 T-score is -0.9 Femoral neck BMD is 0.613 g/cm2 T-score is -2.1 IMPRESSION: 1. Low bone mass by WHO criteria. 2. The WHO fracture risk assessment tool (FRAX) indicates that the 10 year risk for a major osteoporotic fracture is 10% and the 10 year risk for ahip fracture is 1.9%. The FRAX tool has not been validated in patients currently or previously treated with pharmacotherapy for osteoporosis. In such patients, clinical judgement must be exercised in interpreting FRAX scores as the fracturerisk may be overestimated. REFERENCE: Bone mineral density: Normal (T-score above or = -1.0) Low bone mass (T-score between -1.0 and -2.5) replaces thepreviously used term osteopenia Osteoporosis (T-score = or below -2.5) Medical evaluation for secondary causes of low bone mineral density may be appropriate. FRAX is a World Health Organization validated fracture risk assessmenttool that calculates a person's 10 year probability of a major osteoporosisrelated fracture and hip fracture. According to the National OsteoporosisFoundation guidelines, postmenopausal women and men age 50 or older with low bonemass and a 10 year probability of a major osteoporosis related fracture = or greater than 20% or a 10 year probability of a hip fracture = or greaterthan 3% should be considered for treatment. For further information, including treatment recommendations, please referto the 2013 ISCD Official Positions (http://www.iscd.org) and the NOF's Clinician's Guide to Prevention and Treatment of Osteoporosis (http://www.nof.org/professionals/clinical-guidelines) THIS IS AN ELECTRONICALLY VERIFIED FINAL REPORT 06/27/2021 8:23 AM - Electronically signed by Jorge Chakraborty M.D. AB: Report ID: [id number] Reading Location: [id number] Stephen Christy MD IMG DXA PROCEDURES Final Resu lt * Screening Mammogram Bilateral W Jadiel (06/04/2021 12:44 PM CDT) Anatomical Region Laterality Modality Breast Bilateral Mammography 06/04/2021 1:29 PM CDT Impressions 06/04/2021 1:29 PM CDT There is no mammographic evidence of malignancy. Routine screening mammography is recommended in 1 year. BI-RADS: 1 - Negative. The patient will be entered into a reminder system with a target due date of 1 year for her next mammogram. Electronically signed by: Jorge Chakraborty M.D. Narrative 06/04/2021 1:29 PM CDT EXAMINATION: SCREENING MAMMOGRAM BILATERAL W JADIEL ORDERING HEALTHCARE PROVIDER: STEPHEN CHRISTY HISTORY: Baseline screening mammography. COMPARISON: None available. TECHNIQUE: CC and MLO views of the bilateral breasts were obtained with digital technique using breast tomosynthesis with C view. Computer aided detection was utilized. FINDINGS: DENSITY: There are scattered fibroglandular elements in the bilateral breasts. BREASTS: There are no suspicious masses, suspicious calcifications, or other suspicious findings in either breast. Stephen Christy MD IMG MAMMO PROCEDURES Final Re sult from Last 3 Months or Most Recently Relevant to Health Maintenance Insurance [employer] OPEN ACCESS [employer] ACCESS Care Teams Dyer And Washer Relationship Specialty Start Date End Date Stephen Christy MD [address] [place], [place] [id number] PCP - General Internal Medicine 06/03/21
--- OUTSIDE RECORDS SUMMARY | 2025-01-15 09:54 | XMS_ITS | Referral Summary ---
Author Organization [facility] Address [address] [place] [address] Care Team Providers Care Cable Assembler And Swager Name Role Phone Stephen Christy MD Primary Care Provider [phone] Allergies Active Allergy Reactions Criticality Noted Date [...] (05/31/2021): Added automatically from request for surgery [id number] Social History Tobacco Use Types Packs/Day Years [...] on file Legal Sex Female 3:56 PM ENTHONE SOLDER STRIPPER Gender Identity Not on file Sexual Orientation Not on file Last Filed Vital Signs Vital Sign Reading Time Taken Comments Blood Pressure 129/68 08/16/2024 12:15 PM ENTHONE SOLDER STRIPPER Pulse 66 08/16/2024 12:15 PM ENTHONE SOLDER STRIPPER Temperature 36.8 C (98.2 F) 08/16/2024 12:15 PM ENTHONE SOLDER STRIPPER Respiratory Rate 14 08/16/2024 12:15 PM ENTHONE SOLDER STRIPPER Oxygen Saturation 100% 08/16/2024 12:15 PM ENTHONE SOLDER STRIPPER Inhaled Oxygen Concentration - - Weight 56.7 kg (125 lb) 08/16/2024 11:16 AM ENTHONE SOLDER STRIPPER Height 157.5 cm (5' 2) 08/16/2024 11:16 AM ENTHONE SOLDER STRIPPER Body Mass Index 22.86 08/16/2024 11:16 AM ENTHONE SOLDER STRIPPER Plan of Treatment Not on file Procedures Procedure Name Priority Date/Time Associated Diagnosis Comments DEXA AXIAL SKELETON BONE DENSITY 1 OR MORE SITES Schedule Routine, Read Routine (OP Routine) 06/27/2021 7:59 AM ENTHONE SOLDER STRIPPER Asymptomatic menopausal state SCREENING MAMMOGRAM BILATERAL W JADIEL Schedule Routine, Read Routine (OP Routine) 06/04/2021 12:44 PM CDT Encounter for screening mammogram for malignant neoplasm of breast from Last 3 Months or Most Recently Relevant to Health Maintenance Results * Dexa Axial Skeleton Bone Density 1 or 2 Site (06/27/2021 7:59 AM ENTHONE SOLDER STRIPPER) Anatomical Region Laterality Modality Body N/A Other 06/27/2021 8:22 AM ENTHONE SOLDER STRIPPER Narrative 06/27/2021 8:23 AM ENTHONE SOLDER STRIPPER EXAM DESCRIPTION: DEXA AXIAL SKELETON BONE DENSITY 1 OR MORE SITES REASON FOR STUDY: Post-menopausal female, screening for osteoporosis. Guide Domestic Tour/Model: [employer] (S/N [id number]) CLINICAL INFORMATION: Current height: 63 inches Maximum [...] by Jorge Chakraborty M.D. AB: Report ID: [id number] Reading Location: [id number] Procedure Note Jorge Chakraborty MD - 06/27/2021 EXAM DESCRIPTION: DEXA AXIAL SKELETON BONE DENSITY 1 OR MORE SITES REASON FOR STUDY: Post-menopausal female, screening for osteoporosis. Guide Domestic Tour/Model: [employer] (S/N [id number]) CLINICAL INFORMATION: Current height: 63 inches Maximum [...] by Jorge Chakraborty M.D. AB: Report ID: [id number] Reading Location: [place] [id number] Stephen Christy MD IMG DXA PROCEDURES Final [...] Most Recently Relevant to Health Maintenance Insurance [employer] OPEN ACCESS [employer] OPEN ACCESS Care Teams Cable Assembler And Swager Relationship Specialty Start Date End Date Stephen Christy MD [address] [place] [id number] PCP - General Internal Medicine 06/03/21
[2025-01-15 09:56] VITALS: BP 141/72; PULSE 95; RESP 16; TEMP 36.4; O2SAT 100
--- NOTE | 2025-01-15 10:00 | ED.GENADULT ---
HPI - General Adult General Chief complaint: Urogenital-Female Stated complaint: cough, runny nose, uti Time Seen by Provider: 01/15/25 10:00 Source: patient, RN notes reviewed and old records reviewed Mode of arrival: ambulatory Limitations: no limitations History of Present Illness HPI narrative: 69 year old female who presents to [facility] care with complaints of 1 week duration of cough sinus drainage and also some sore throat discomfort. Patient has been taking Claritin and some OTC cough syrup without resolution of her symptoms. Patient reports that she has coughed so hard that she has vomited. Patient also reports that for the past 3--4 days she has had some burning and pressure with urination. Patient reports that she has been running low grade temperature of 99.8F highest. MD complaint: cough and pressure and burning with urination Onset (ago): day(s) (1 week cough 3--4 days urinary burning and pressure) Severity: moderate Treatments prior to arrival: other (Claritin and cough syrup) Related Data Home Medications ?Medication ?Instructions ?Recorded ?Confirmed ?Last Taken ?Type diltiazem HCl 240 mg mg PO 01/15/25 Unknown History capsule,extended release 24 hr, controlled (DILT-XR) Allergies Allergy/AdvReac Type Severity Reaction Status Date / Time azithromycin Allergy Intermediate rash Verified 01/15/25 10:00 codeine Allergy Intermediate Hallucinati Verified 01/15/25 10:00 ng ibuprofen AdvReac Intermediate sick to Verified 01/15/25 10:00 stomach and hallucinate Review of Systems Review of Systems: CONSTITUTIONAL: reports low grade fevers highest 99.8F, chills, or sweats. EYES: Denies visual changes, redness, or discharge. ENT: Reports rhinorrhea, congestion, sore throat, no otalgia. CARDIOVASCULAR: Denies chest pain, palpitations, or edema. RESPIRATORY:Reports cough no dyspnea. GASTROINTESTINAL: Denies abdominal pain, nausea, vomiting, or diarrhea. GENITOURINARY: Reports burning and pressure with urination for 3--4 days no hematuria. denies any CVA tenderness SKIN: Denies rash or itching. MUSCULOSKELETAL: Denies back pain, joint pain, or myalgia. NEUROLOGIC: Denies headache, numbness, or weakness. PSYCHIATRIC: Denies anxiety or depression. All systems reviewed & are unremarkable except as noted in HPI and below PMFSH Past Medical History Medical History (Updated 01/16/25 @ 19:48 by Peg Torres NP) Tachycardia Surgical History Surgical History (Updated 01/16/25 @ 19:35 by Peg Torres NP) H/O tubal ligation H/O: hysterectomy Past surgical history of mastectomy Family History Family History Mother Family history non-contributory Social History Social History Smoking status: Never smoker Substance use: never Living arrangements: with family Additional occupation/education comments: Runs daycare Gender identity (if verbalized by the patient): Female Spiritual care concerns: No Comments At time of signature, agree with nursing past medical, surgical, social and family history. There is no relevant family history pertinent to the presenting complaint Exam Narrative: GENERAL: Well-appearing, well-nourished, and in no acute distress. HEAD: Normocephalic, atraumatic. EYES: PERRLA and EOMI. ENT: Nares clear, clear rhinorrhea no epistaxis. Mucous membranes moist.TM's normal with good light reflex, throat red and tonsils swollen post nasal drainage noted NECK: Supple no lymphadenopathy CHEST: Clear to auscultation. No respiratory distress. cough noted SAO2 100% on room air HEART: Regular rate and rhythm. HR 95 bpm No murmur heard. Normal peripheral pulses. ABDOMEN: Soft, nontender, nondistended, normal active bowel sounds. no suprapubic pain or any CVA tenderness, reports some burning and bladder pressure with urination for 3-4 days. urine clear yellow see urine dip EXTREMITIES: Normal range of motion. No edema. SKIN: Warm, dry, no rash. NEURO: No focal deficits. Alert and oriented x3. Course Course Emergency Course: Patient is aware of diagnosis, understands and agrees to treatment plan.? Anticipatory guidance given.? Patient agrees to follow-up as directed and is aware of reasons to seek care at the emergency department. Portions of this record may have been created with voice recognition software Level of Care: Express Care Visit Vital Signs Vital signs: Vital Signs Temperature 36.4 C 01/15/25 09:56 Pulse Rate 95 01/15/25 09:56 Respiratory Rate 16 01/15/25 09:56 Blood Pressure 141/72 H 01/15/25 09:56 Pulse Oximetry 100 01/15/25 09:56 Oxygen Delivery Room Air 01/15/25 09:56 Temperature 36.4 C 01/15/25 09:56 Pulse Rate 95 01/15/25 09:56 Respiratory Rate 16 01/15/25 09:56 Blood Pressure 141/72 H 01/15/25 09:56 Pulse Oximetry 100 01/15/25 09:56 Oxygen Delivery Room Air 01/15/25 09:56 Reviewed Medical Decision Making MDM Narrative Medical decision making narrative: Exam findings and imaging show no acute concerns or changes; patient is non-toxic appearing and is in no distress.? Patient is appropriate for outpatient treatment and follow-up Differential Diagnosis Differential Diagnosis: URI, cough, sinusitis, viral infection, urinary burning and bladder pressure Medical Records Medical records reviewed: Yes I reviewed the external patient's medical records. Vital Signs Vital Signs: Vital Signs Temperature 36.4 C 01/15/25 09:56 Pulse Rate 95 01/15/25 09:56 Respiratory Rate 16 01/15/25 09:56 Blood Pressure 141/72 H 01/15/25 09:56 Pulse Oximetry 100 01/15/25 09:56 Oxygen Delivery Room Air 01/15/25 09:56 Temperature 36.4 C 01/15/25 09:56 Pulse Rate 95 01/15/25 09:56 Respiratory Rate 16 01/15/25 09:56 Blood Pressure 141/72 H 01/15/25 09:56 Pulse Oximetry 01/15/25 09:56 Oxygen Delivery Room Air 01/15/25 09:56 Lab Data Lab results reviewed: Yes I reviewed the patient's lab results. Lab results narrative: urine dip negative for blood or leukocytes, strep screen negative, culture sent Labs: Lab Results 01/15/25 01/15/25 Range/Units 10:04 10:15 POC Urine Color Light/pale POC Urine Clarity Clear POC Urine pH 5.5 POC Ur Specif [place] 1.005 POC Urine Protein Negative (Negative) POC Ur Glucose (UA) Negative (Negative) POC Urine Ketones Negative (Negative) POC Urine Blood Negative (Negative) POC Urine Nitrite Negative (Negative) POC Urine Bilirubin Negative (Negative) POC Urine Urobilinogen 0.2 POC U Leukocyte Esteras Negative (Negative) POC Grp A Strep Screen Negative (Negative) reviewed Critical Care Time Critical Care Time Critical Care Time: No Discharge Plan Discharge Clinical Impression: URI with cough and congestion, Symptomatic urinary tract infection Patient Disposition: Home Condition: Stable Instructions: Antibiotic Form, Urinary Tract Infection in Women (DC), Upper Respiratory Infection (ED), Acute Cough (ED) Additional Instructions: Increase fluids especially juices and water Atce-ilm-dszijek cough and cold medicine of your choice for your symptoms Cough tablets as directed for cough--do not bite, chew or suck on--swallow whole Zyrtec, Claritin or Analy may include Coricidin brand decongestant due to elevated blood pressure heat to the face 20-30 minutes 4-6 times a day for pain Salt water gargles, throat lozenges or throat sprays as desired Antibiotic as directed--finished the medication If your symptoms persist, change or worsen significantly before you can contact your personal physician then please, without delay, go to the emergency department for further evaluation. Follow-up with PCP in 7-10 days or sooner if needed Follow up with PCP soon in regards to your blood pressure which is elevated above threshold for referral. Blood pressure above 120/80 may indicate pre-hypertension.141/72 Patient Language: Occitan Prescriptions: New benzonatate 200 mg capsule 200 mg PO TID PRN (Reason: cough) Qty: 30 0RF cephalexin 500 mg capsule 500 mg PO Q8H Qty: 21 0RF No Action diltiazem HCl [DILT-XR] 240 mg capsule,ext.rel 24h degradable PO Follow-up/Referrals: Adryan,MD Bri [Primary Care Provider] - Time of Disposition: 10:58 Quality [place] Coma Scale Eyes: Open Verbal: Oriented and Alert Motor: Follows Commands Martin Coma Total Score: 15
[2025-01-15 10:11] LABS: EDUAAPPEAR Clear; EDUABILI Negative (Negative); EDUABLOOD Negative (Negative); EDUACOLOR1 Light/Pale; EDUAGLUCOSE Negative (Negative); EDUAKETONE Negative (Negative); EDUALEUKO Negative (Negative); EDUANITRATE Negative (Negative); EDUAPH 5.5; EDUAPROTEIN Negative (Negative); EDUASPGRAVITY 1.005; EDUAUROBILI 0.2
[2025-01-15 10:24] LABS: EDSTREPNEGPOS1 Negative (Negative)
== END 2025-01-15 10:58 | disposition home or self-care (01) ==
PROVIDERS: Emergency Provider Registered Nurse; PCP Internal Medicine
DX: J06.9 Acute upper respiratory infection, unspecified (principal); R05.9 Cough, unspecified; N39.0 Urinary tract infection, site not specified; Z90.10 Acquired absence of unspecified breast and nipple
CPT/HCPCS: 81003; 87081; 87086; 87880; 99213; G0463